=== PATIENT | male | born 2000 | race Caucasian/White ===

== ENCOUNTER 2023-11-17 21:00 | Outpatient (CLI) | payer OTHER ==
--- NOTE | 2023-11-19 12:44 | Ultrasound Report ---
PROCEDURE: Testicle INDICATIONS: TESTICULAR PAIN TECHNIQUE: Real-time scanning was performed of the scrotum and testicles, with image documentation. Color and p ulse Doppler interrogation was performed of both testicles. COMPARISON: None. FINDINGS: Right: Testicle is normal in size at 4.5 x 2.4 x 2.7 cm, and homogenous in echotexture. Epididymis is normal in overall size and morphology. No hydrocele. No varicoceles. Overlying scrotal skin is n ormal in thickness. Left: Testicle is normal in size at 2.6 x 4.2 x 2.3 cm, and homogeneous in echotexture. Epididymis is normal in overall size and morphology. No hydrocele. No varicoceles. Overlying scrotal skin is n ormal in thickness. Doppler: Color and pulse Doppler demonstrate normal and symmetric arterial flow in both testicles. IMPRESSION: No evidence of torsion time exam. Intermittent torsion cannot be excluded. Reviewed by: Sharon Cedillo MD on 11/19/2023 12:42 PM PDT Approved by: Sharon Cedillo MD on 11/19/2023 12:42 PM PDT Station ID: [id number]
== END 2023-11-17 21:01 | disposition home or self-care (01) ==
LOC: DI 21:00
PROVIDERS: ATTEND Student in an Organized Health Care Education/Training Program
DX: N50.819 Testicular pain, unspecified (principal)